=== PATIENT | female | born 1965 | race Hispanic/Latino ===

== ENCOUNTER 2017-06-25 12:20 | Day surgery (SDC) | payer OTHER ==
--- NOTE | 2017-06-25 19:47 | OP ---
DATE OF PROCEDURE: 06/25/2017 PROCEDURE: Esophagogastroduodenoscopy with biopsy SURGEON: Tobi Fowler M.D. ANESTHESIA: Premedication given per Anesthesiology Department PREOPERATIVE DIAGNOSES: 1. Recurrent abdominal pain despite therapy. 2. Gastroesophageal reflux disease. 3. Status post cholecystectomy. POSTOPERATIVE DIAGNOSES: Normal esophagus, normal stomach, and normal duodenum. PROCEDURE DETAILS: Written consent was obtained prior to procedure. After adequate sedation, the fo rward-viewing endoscope was advanced down the stomach under direct vision to the third portion of duo denum. The duodenum including the bulb appeared normal. Pylorus is patent. The gastric antrum, bod y, fundus, and cardia all appeared normal. Biopsies obtained from the antrum for H. pylori. Retrofl exion did not show any abnormality. The GE junction is located at 35 cm from the incisors. The esop hageal lumen and mucosa appeared normal. ASSESSMENT: Normal upper endoscopy. RECOMMENDATIONS: 1. Hyoscyamine 0.125 mg p.o. t.i.d. 2. Follow up in the office in 3-4 weeks.
== END 2017-06-25 15:14 | disposition home or self-care (01) ==
LOC: SDC 12:20
PROVIDERS: ATTEND Internal Medicine Gastroenterology
PROC: 0DJ08ZZ Inspection of Upper Intestinal Tract, Via Natural or Artificial Opening Endoscopic (ICD-10-PCS; principal; 2017-06-25)
DX: K21.9 Gastro-esophageal reflux disease without esophagitis (principal); R10.9 Unspecified abdominal pain; F17.210 Nicotine dependence, cigarettes, uncomplicated; Z79.899 Other long term (current) drug therapy; Z90.49 Acquired absence of other specified parts of digestive tract

== ENCOUNTER 2017-07-05 08:25 | Outpatient (CLI) | payer OTHER | END 2017-07-05 08:26 | disposition home or self-care (01) | LOC: BICMAMMO 08:25 | PROVIDERS: ATTEND Family Medicine | DX: Z12.31 Encounter for screening mammogram for malignant neoplasm of breast (principal); Z80.3 Family history of malignant neoplasm of breast | CPT/HCPCS: 77063; 77067 ==

== ENCOUNTER 2017-08-23 15:46 | Outpatient (CLI) | payer OTHER ==
[~2017-08-23 15:46] MED LIST: Iopamidol 370 76% 100 ML VIAL ONE
--- NOTE | 2017-08-23 16:52 | CT ---
CT ANGIOGRAM THORAX WITH IV CONTRAST AND 3D RECONSTRUCTIONS: 08/23/2017 HISTORY: Elevated D-dimer. Back pain. FINDINGS: No filling defects are seen pulmonary arteries to suggest a pulmonary embolus. The thoracic aorta is normal in caliber without evidence of an aortic dissection. Mediastinal structures have a normal CT appearance. There are scattered linear densities seen within the right middle lobe and right lower lobe, as well as the lingula and the left lower lobe, likely related to areas of atelectasis or possibly but less l ikely areas of scarring. No discrete pulmonary nodule or mass is seen, and there is no evidence of a pleural effusion. Limited visualized upper abdomen demonstrates a grossly normal CT appearance for the arterial phase o f imaging. IMPRESSION: 1. No CT evidence of a pulmonary embolus. 2. Scattered areas of atelectasis. POS: [facility]
== END 2017-08-23 15:47 | disposition home or self-care (01) ==
LOC: CT 15:46
PROVIDERS: ATTEND Family Medicine
DX: R79.89 Other specified abnormal findings of blood chemistry (principal); J98.11 Atelectasis
CPT/HCPCS: 71275

== ENCOUNTER 2017-08-26 10:39 | Outpatient (CLI) | payer OTHER ==
[2017-08-26] MEDS ORDERED: ISOVUE-370 76%-LOCM 1 ML ONE (11:24)
== END 2017-08-26 10:40 | disposition home or self-care (01) ==
LOC: BICCT 10:39
PROVIDERS: ATTEND Family Medicine
DX: R10.84 Generalized abdominal pain (principal); C22.0 Liver cell carcinoma; R59.0 Localized enlarged lymph nodes; N28.89 Other specified disorders of kidney and ureter
CPT/HCPCS: 74177

== ENCOUNTER 2017-08-27 09:55 | Outpatient (CLI) | payer OTHER ==
[~2017-08-27 09:55] MED LIST changes: +Gadobenate Dimeglumine 529 MG/1 ML (20ML VIAL) ONE; -Iopamidol 370 76% 100 ML VIAL ONE
--- NOTE | 2017-08-27 13:35 | MRI ---
MRI ABDOMEN WITH AND WITHOUT IV CONTRAST: Date: 08/27/17 HISTORY: Left liver lobe mass and renal mass. IV CONTRAST: 20 mL MultiHance. CORRELATION: CT abdomen and pelvis dated 08/26/17. FINDINGS: There is a large heterogeneous mass in the left lobe of the liver occupying almost the entire left lo be with additional foci of smaller nodular enhancement adjacent to the larger mass. There is thrombos is of the left portal vein. Associated lymphadenopathy is seen in the peripancreatic, periportal, and retroperitoneum. The pancreas, adrenal glands, spleen, and right kidney are normal. There is an 18.0 mm proteinaceous/ hemorrhagic cyst in the left kidney with high T1 and T2 signal, and no postcontrast enhancement on th e subtraction images. A tiny, 6.0 mm, simple cyst is seen in the left renal cortex with low T1/high T 2 signal and no postcontrast enhancement. No ascites is seen. The bone marrow signal is normal. There are scattered colonic diverticula. IMPRESSION: 1. Infiltrating left liver lobe mass with abdominal lymphadenopathy and left portal vein occlusion s uspicious for malignancy/metastatic disease. 2. Left renal cysts. 3. Colonic diverticulosis. 4. Correlation with serum timi protein levels is recommended. POS: [facility]
== END 2017-08-27 09:56 | disposition home or self-care (01) ==
LOC: SCSMRI 09:55
PROVIDERS: ATTEND Family Medicine
DX: R16.0 Hepatomegaly, not elsewhere classified (principal); I81 Portal vein thrombosis; N28.1 Cyst of kidney, acquired; R59.0 Localized enlarged lymph nodes; K57.30 Diverticulosis of large intestine without perforation or abscess without bleeding
CPT/HCPCS: 36415; 74183; 82105

== ENCOUNTER 2017-09-30 15:26 | Outpatient (CLI) | payer OTHER ==
[2017-09-30 16:18] LABS: #Eosinphils 0.1 thou/uL (0.0-0.7); #Lymphocytes 2.4 thou/uL (1.20-3.40); #Monocytes 0.8 thou/uL (0.11-0.59); #Neutrophils 8.1 thou/uL (1.40-6.50); %Basophils 0.4 % (0.0-1.0); %Eosinophils 0.9 % (0.0-10.0); %Monocytes 7.1 % (0.0-10.0); %Neutrophils 70.7 % (42.0-75.0); Mean Corpuscular HGB CONC 34.5 g/dL (32.0-36.0); Mean Corpuscular Volume 86.9 fL (78.0-98.0); Platelet Count 149 thou/uL (130-400); RBC Distribution Width 12.1 % (11.5-14.5); Red Blood Cell (RBC) Count 4.68 mill/uL (4.20-5.40); White Blood Cell (WBC) Count 11.5 thou/uL (4.8-10.8)
[2017-09-30 16:35] LABS: Anion Gap 15 mmol/L (10-20); BUN (Urea Nitrogen) 12 mg/dL (7.0-18.7); Calc. Creatinine Clearance 0 mL/min (70-130); Calcium 10.9 mg/dL (7.8-10.44); Carbon Dioxide 26 mmol/L (22-29); Chloride 99 mmol/L (98-107); Estimated GFR-MDRD 87; Glucose 138 mg/dL (70-105); Potassium 3.5 mmol/L (3.5-5.1); Sodium 136 mmol/L (136-145)
== END 2017-09-30 15:27 | disposition home or self-care (01) ==
LOC: LABBT 15:26
PROVIDERS: ATTEND Surgery
DX: Z01.812 Encounter for preprocedural laboratory examination (principal); C24.9 Malignant neoplasm of biliary tract, unspecified
CPT/HCPCS: 80048; 85025; 93005; 93010

== ENCOUNTER 2017-10-01 11:25 | Day surgery (SDC) | payer OTHER ==
[2017-09-30 15:51] VITALS: BMI 40.8
[2017-10-01] MEDS ORDERED: CEFAZOLIN/Water 2 GM/20 ML SYRINGE ONE (12:09)
[2017-10-01] MEDS ORDERED: Bupivacaine/Epinephrine 0.25% 30 ML VIAL ONE (12:22)
[2017-10-01] MEDS ORDERED: Lidocaine 2% 10 ML INJ ONE (12:22)
[2017-10-01] MEDS ORDERED: Propofol 500 MG/50 ML VIAL ONE (12:30)
[2017-10-01] MEDS ORDERED: Fentanyl 100 MCG/2 ML VIAL ONE (12:30)
--- NOTE | 2017-10-01 14:01 | RAD ---
CHEST 1 VIEW: HISTORY: MediPort placement. COMPARISON: None. FINDINGS: A central venous catheter port is in place with tip at the inferior SVC in good position. No pneumot horax. There are extensive airspace opacities throughout both lungs. IMPRESSION: 1. Uncomplicated placement of MediPort catheter. 2. Linear opacities in both lungs may be reflective of chronic scarring or atelectasis. POS: [facility]
[2017-10-01] MEDS ORDERED: PROPOFOL 200 MG/20 ML VIAL ONE (15:23)
[2017-10-01] MEDS ORDERED: Lidocaine 1% PF 5 ML VIAL ONE (15:23)
--- NOTE | 2017-10-01 19:32 | PDOC.OP ---
Operative Note - Operative Note Operative Note: PROCEDURE: Left subclavian MediPort placement with fluoroscopic guidance SURGEON: Obed Monique M.D. DATE OF PROCEDURE: 10/01/2017 PREOPERATIVE DIAGNOSIS: Cholangiocarcinoma POSTOPERATIVE DIAGNOSIS: Cholangiocarcinoma HISTORY: Patient is diagnosed with node positive intrahepatic cholangiocarcinoma. Chemotherapy has been recommended and the oncologist has requested MediPort placement for this. OPERATIVE PROCEDURE IN DETAIL: After informed consent was obtained and appropriate preoperative antibiotics were administered, the patient was taken to the operating room and placed in supine position and monitored anesthesia care was administered. The patient was then placed in Trendelenburg position and the subclavian vein accessed easily on the first attempt with excellent flow of dark venous non-pulsatile blood. A wire threaded easily and was confirmed to be in the superior vena cava by fluoroscopy. Additional local anesthesia was infused to the skin and subcutaneous tissues lateral and inferior to the access site. The skin incision was extended from the wire laterally and a subcutaneous pocket developed inferiorly. A Mediport was obtained and confirmed to fit in the subcutaneous pocket. This was secured inferiorly to the pectoralis fascia with a Prolene suture, which was clamped, but not tied. The dilator and sheath were then placed over the wire and the dilator and wire removed leaving the sheath in place. The clamped MediPort tubing was tunneled through the sheath, which was then split and removed leaving the MediPort tubing in place. The tubing was adjusted until the tip was confirmed by fluoroscopy to be in the superior vena cava just above the atrium. The tubing was clamped at the skin level and cut and the tubing secured to the port, which was then placed in the subcutaneous pocket. The previously placed suture was secured and two additional sutures were placed to fix the port in place within the pocket. The port was aspirated with the Ramires needle and had excellent flow of dark venous non-pulsatile blood and easily flushed without resistance. The subcutaneous tissues were closed with a running Monocryl suture, following which the skin was closed with a running subcuticular Monocryl suture. Dermabond dressings were placed and the hub was again accessed through the skin and confirmed to easily aspirate and easily flush. The course of the catheter was confirmed by fluoroscopy to be smooth with the tip appropriately located in the superior vena cava. The patient was taken her back to the day stay unit in good condition. Estimated blood loss was minimal. There were no complications. There were no specimens.
== END 2017-10-01 15:10 | disposition home or self-care (01) ==
LOC: SDC 11:25
PROVIDERS: ATTEND Surgery
PROC: 02HV33Z Insertion of Infusion Device into Superior Vena Cava, Percutaneous Approach (ICD-10-PCS; principal; 2017-10-01)
DX: C22.1 Intrahepatic bile duct carcinoma (principal); E11.9 Type 2 diabetes mellitus without complications; I10 Essential (primary) hypertension; E78.5 Hyperlipidemia, unspecified; Z79.899 Other long term (current) drug therapy; Z87.891 Personal history of nicotine dependence
CPT/HCPCS: 71045; 80048; 85025; 93005; 93010; C1788; J1642; J2001; J2704; J3010

== ENCOUNTER 2017-12-20 08:29 | Outpatient (CLI) | payer OTHER ==
--- NOTE | 2017-12-20 10:41 | CT ---
CT ABDOMEN AND PELVIS WITH IV CONTRAST: Technique: Multiple axial tomograms were obtained of the abdomen and pelvis with IV enhancement. Oral contrast was administered. Indication: [place] carcinoma. Post chemotherapy. Surgical history includes cholecystectomy, hyster ectomy. Comparison: CT abdomen/pelvis from [facility], 08-26-17. FINDINGS: The lung bases appear clear with possible atelectasis in the lower lobes and right middle lobe. The multilobulated diffuse area of low attenuation involving the left lobe of the liver is again note d. No significant change in size or extent of this liver abnormality when compared to 08-26-17. Spleen and pancreas remain unremarkable. The hepatic gastric adenopathy as well as adenopathy in the region adjacent to the neck of the pancre as is again noted, unchanged. Probable small lymph node in the portahepatis is unchanged. The enlarg ed portocaval lymph node is unchanged, continuing to measures approximately 1.2 cm AP dimension. Adrenal glands unremarkable. The 1.6 cm low attenuation lesion involving the left kidney is again noted. This lesion has a density of 55 Hounsfield units which is higher than anticipated for a simple cyst. This represents a complex lesion, but is stable in size from the prior study. Small bowel loops unremarkable. Aorta normal caliber. There is apparent aortic adenopathy which appears stable. There is an enlarged lymph node just to the left of the lower abdominal aorta measuring 1.5 cm, stable. There are other paraaortic lymph nodes m easuring up to 1 cm which appears stable. Aortocaval lymph nodes are enlarged and stable measuring up to 1 cm. Review of the colon again shows diverticulosis in the left colon and sigmoid. There continues to be i nflammatory change involving the sigmoid colon suggesting changes of diverticulitis. No extraluminal mass or abscess identified. No extraluminal gas. IMPRESSION: 1. Multilobular mass involving left lobe of the liver is unchanged in size and appearance from 8. 2. The upper abdominal adenopathy and paraortic adenopathy again noted, stable from the prior exam. 3. Evidence of diverticulitis involving the sigmoid colon again noted as described. 4. Complex low density mass involving the left kidney is again noted, unchanged. POS: [facility]
[2017-12-20] MEDS ORDERED: Iopamidol 370 76% 100 ML VIAL ONE (15:12)
== END 2017-12-20 08:30 | disposition home or self-care (01) ==
LOC: CT 08:29
PROVIDERS: ATTEND Internal Medicine Hematology & Oncology
DX: C22.1 Intrahepatic bile duct carcinoma (principal); R16.0 Hepatomegaly, not elsewhere classified; R59.0 Localized enlarged lymph nodes; K57.32 Diverticulitis of large intestine without perforation or abscess without bleeding; N28.89 Other specified disorders of kidney and ureter
CPT/HCPCS: 74177

== ENCOUNTER 2018-04-11 08:19 | Outpatient (CLI) | payer OTHER ==
--- NOTE | 2018-04-11 11:21 | CT ---
CT OF THE ABDOMEN AND PELVIS WITH IV COTNRAST: INDICATION: History of cholangiocarcinoma. COMPARISON: Prior CT of the abdomen and pelvis dated 12/20/2017. CONTRAST: 70 cc of Isovue 370. FINDINGS: There is an enlarging 11 mm pulmonary nodule left lower lobe suspicious for pulmonary metastatic dise ase. The infiltrating mass lesion involving the left hepatic lobe demonstrates worsening scarring and retr action of the anterior left hepatic capsular border. There are new numerous hypodensities seen scatt ered throughout the hepatic lobe suspicious for metastatic disease. The periportal and portocaval lymphadenopathy persist and appear slightly larger with the index lesio n measuring 1.4 cm where previously this portocaval lymph node measured 1.2 cm. Pancreas and adrenal glands are unremarkable. The spleen remains enlarged measuring 15 cm. Left renal cysts are stable. There has been interval development of wall thickening and pericolonic inflammatory stranding involvi ng the sigmoid colon suspicious for diverticulitis. There is scattered degenerative and osteoarthritic change. IMPRESSION: 1. Worsening cholangiocarcinoma of the left hepatic lobe with worsening scarring and retraction of t he anterior left hepatic lobe border. There are numerous hypodensities now present within the right hepatic lobe likely related to regional spread of disease to the right aspect of the liver. 2. Pulmonary metastatic disease. 3. Persistent adenopathy of the upper abdomen likely related to regional lymph node spread of diseas e. 4. Noncomplicated sigmoid colonic diverticulitis. 5. Stable left renal cyst. 6. Stable splenomegaly. CODE T POS: [facility]
[2018-04-11] MEDS ORDERED: ISOVUE-370 76%-LOCM 1 ML ONE (12:46)
== END 2018-04-11 08:20 | disposition home or self-care (01) ==
LOC: BICCT 08:19
PROVIDERS: ATTEND Internal Medicine Hematology & Oncology
DX: C22.1 Intrahepatic bile duct carcinoma (principal); R59.0 Localized enlarged lymph nodes; N28.1 Cyst of kidney, acquired; R16.1 Splenomegaly, not elsewhere classified; K57.32 Diverticulitis of large intestine without perforation or abscess without bleeding; C78.00 Secondary malignant neoplasm of unspecified lung
CPT/HCPCS: 74177

== ENCOUNTER 2018-05-17 15:22 | Inpatient (IN) | payer OTHER ==
[~2018-05-17 15:22] MED LIST changes: -Gadobenate Dimeglumine 529 MG/1 ML (20ML VIAL) ONE; +ISOVUE-370 76%-LOCM 1 ML ONE
[2018-05-17 16:26] LABS: #Basophils 0.1 thou/uL (0.0-0.2); #Eosinphils 0.1 thou/uL (0.0-0.7); #Lymphocytes 1.5 thou/uL (1.20-3.40); #Neutrophils 11.9 thou/uL (1.40-6.50); %Basophils 0.5 % (0.0-1.0); %Eosinophils 0.6 % (0.0-10.0); %Lymphocytes 10.4 % (21.0-51.0); %Monocytes 7.1 % (0.0-10.0); %Neutrophils 81.5 % (42.0-75.0); Hemoglobin 13.2 g/dL (12.0-16.0); Mean Corpuscular HGB CONC 32.4 g/dL (32.0-36.0); Mean Corpuscular Hemoglobin 31.1 pg (27.0-31.0); Mean Corpuscular Volume 96.1 fL (78.0-98.0); Platelet Count 119 thou/uL (130-400); RBC Distribution Width 16.3 % (11.5-14.5); Red Blood Cell (RBC) Count 4.23 mill/uL (4.20-5.40); White Blood Cell (WBC) Count 14.6 thou/uL (4.8-10.8)
[2018-05-17] MEDS ORDERED: Ondansetron PF 4 MG/2 ML Vial ONE ×2 (16:26→16:29)
[2018-05-17] MEDS ORDERED: Morphine 4 MG/ML VIAL ONE (16:26)
[2018-05-17 16:45] LABS: ALT (SGPT) 17 U/L (8-55); AST (SGOT) 57 U/L (5-34); Albumin 3.3 g/dL (3.5-5.0); Alkaline Phosphatase 235 U/L (40-150); Anion Gap 11 mmol/L (10-20); BUN (Urea Nitrogen) 8 mg/dL (7.0-18.7); Bilirubin, Total 1.5 mg/dL (0.2-1.2); Calc. Creatinine Clearance 0 mL/min (70-130); Calcium 11.4 mg/dL (7.8-10.44); Carbon Dioxide 24 mmol/L (22-29); Chloride 102 mmol/L (98-107); Estimated GFR-MDRD 82; Globulin 4.5 g/dL (2.4-3.5); Glucose 113 mg/dL (70-105); Lipase 37 U/L (8-78); Potassium 3.6 mmol/L (3.5-5.1); Protein, Total 7.8 g/dL (6.0-8.3); Sodium 133 mmol/L (136-145)
--- NOTE | 2018-05-17 18:03 | CT ---
ABDOMEN CT WITH CONTRAST PELVIC CT WITH CONTRAST 05/17/18 COMPARISON: 04/11/18 HISTORY: Cholangiocarcinoma. Metastatic disease. Currently not undergoing any chemotherapy. FINDINGS: ABDOMEN CT: There are linear opacities involving both lower lobes as well as the middle lobe and lingula. Areas o f subsegmental atelectasis and scarring are favored. Heart size is normal. No pericardial effusion. T he visualized aorta is unremarkable. There is a nodule in the left lower lobe measuring 1.2 x 0.9 cm, Unchanged from the previous examinat ion. Metastatic focus is favored. Interval progression of heterogeneous enhancement throughout the hepatic parenchyma. Heterogeneity of the left hepatic lobe is stable. However, there appear to be an increase in the number of heterogene ous/hypodense foci in the right hepatic lobe suggesting progression of disease. The central portal ve in does appear to be patent. The peripheral branches cannot be adequately assessed. The spleen is enl arged, measuring 15.7 cm. Splenic varices are noted. There are enlarged periportal lymph nodes, uncha nged. Currently, this periportal lymph node measures 1.3 cm in short axis (1.3 cm in short axis previ ously). There is interval development of perihepatic or perisplenic free fluid with fluid tracking al jerry both pericolic gutters. Adrenal glands and pancreas are unremarkable. Symmetric enhancement of the kidneys. Bilaterally, no o bstructive uropathy. There is free fluid in the abdomen which has developed since the previous examination. No mesenteric mass, lymphadenopathy or free air. Stable ventral abdominal wall hernia containing a small focus of f at. There is a peripherally enhancing centrally hypodense focus likely involving a thrombosed abdominal v ein, possibly the right ovarian vein. Findings are unchanged. No retroperitoneal mass, lymphadenopath y, or hematoma. Symmetric attenuation of the psoas muscles. Limited evaluation of the alimentary canal by lack of oral contrast. There is a segments of small bow el which are fluid filled and prominent. The possibility of an early or partial obstructive process i n the left hemiabdomen cannot be excluded. Distal small bowel loops are decompressed. Appendix is nor mal in caliber. There is scattered fecal material in a nondistended, nondilated colon. Occasional div erticulum. No diverticulitis. Mucosal prominence of the sigmoid colon is felt to be due to inadequate distention versus sequela of remote episodes of diverticulitis. CT PELVIS: There is free fluid in the pelvis. Urinary bladder is unremarkable. No pelvic mass, lymphadenopathy o r free air. IMPRESSION: 1. Progression of disease in the liver. 2. Stable portal hepatis lymphadenopathy. 3. Metastatic nodule in the left lower lobe. 4. Splenomegaly with splenic varices. 5. Early or partial small bowel obstruction in the proximal jejunal loops. 6. Mucosal prominence of the sigmoid colon likely due to inadequate distention. POS: [facility]
[2018-05-17 18:37] LABS: Bilirubin Negative (Negative); Blood, Urine Negative (Negative); Clarity CLEAR (Clear); Glucose, Urine (Dipstick) Negative (Negative); Leukocyte Negative (Negative); Nitrite Negative (Negative); Protein, Urine (Dipstick) Negative (Neg-Trace); Specific Gravity, Urine 1.033 (1.002-1.036); Urobilinogen 0.2 mg/dL (0.2-1.0); pH, Urine 7.5 (5.0-9.0)
[2018-05-17] MEDS ORDERED: Morphine 4 MG/ML VIAL SLOW IVP PRN ×2 (20:07→22:57)
[2018-05-17] MEDS ORDERED: Ondansetron PF 4 MG/2 ML Vial IVP PRN (20:07)
[2018-05-17] MEDS ORDERED: Ondansetron ODT 4 MG TAB SL PRN (20:07)
[2018-05-17 20:09] LABS: Lactic Acid 1.5 mmol/L (0.5-2.2)
[2018-05-17] MEDS: D5 1/2 NS w/20 mEq KCL 1,000 ML IV SCH (20:36)
[2018-05-17 20:57] VITALS: BMI 41.8
[2018-05-17] MEDS ORDERED: HYDROcodone/Acetaminophen 10/325 mg Tablet PO PRN (22:57)
[2018-05-17] MEDS ORDERED: Acetaminophen 325 MG TAB PO PRN (23:03)
[2018-05-18] MEDS: D5 1/2 NS w/20 mEq KCL 1,000 ML IV SCH ×2 (04:40→13:22)
[2018-05-18 05:09] LABS: #Basophils 0.1 thou/uL (0.0-0.2); #Eosinphils 0.1 thou/uL (0.0-0.7); #Lymphocytes 1.6 thou/uL (1.20-3.40); #Neutrophils 8.7 thou/uL (1.40-6.50); %Basophils 0.5 % (0.0-1.0); %Eosinophils 1.3 % (0.0-10.0); %Lymphocytes 13.9 % (21.0-51.0); %Monocytes 8.3 % (0.0-10.0); %Neutrophils 76.1 % (42.0-75.0); Hemoglobin 11.1 g/dL (12.0-16.0); Mean Corpuscular HGB CONC 32.1 g/dL (32.0-36.0); Mean Corpuscular Hemoglobin 31.6 pg (27.0-31.0); Mean Corpuscular Volume 98.5 fL (78.0-98.0); Mean Platelet Volume 11.5 fL (7.4-10.4); Platelet Count 99 thou/uL (130-400); RBC Distribution Width 16.1 % (11.5-14.5); Red Blood Cell (RBC) Count 3.51 mill/uL (4.20-5.40); White Blood Cell (WBC) Count 11.4 thou/uL (4.8-10.8)
--- NOTE | 2018-05-18 05:15 | HP ---
PRIMARY CARE DOCTOR: Dr. Ivon Marcelino. CODE STATUS: Full code. TIME OF EVALUATION: 11:10 p.m. CHIEF COMPLAINT: Abdominal pain. 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 The pain has been gradually worsening, is being very severe. Symptoms are generalized. She reported the pain is like cramps. REVIEW OF SYSTEMS: CONSTITUTIONAL: No fever, chills, or generalized weakness. RESPIRATORY: No cough, sputum production, or shortness of breath. CARDIOVASCULAR: No chest pain or palpitation. GASTROINTESTINAL: The patient had diffuse abdominal pain, diarrhea. No nausea or vomiting. CNP: No dizziness, headache, or feeling lightheaded. GENITOURINARY: No burning on urination. EXTREMITIES: No leg swelling. All other systems were reviewed and negative except for the findings mentioned above. PAST MEDICAL HISTORY: As mentioned in HPI. PAST SURGICAL HISTORY: Hysterectomy, gallbladder surgery, tubal ligation. PSYCH HISTORY: No previous psych history. SOCIAL HISTORY: No alcohol. No drugs. The patient smokes occasionally. FAMILY HISTORY: Reviewed and noncontributory for current presentation. ALLERGIES: NO KNOWN DRUG ALLERGIES. PHYSICAL EXAMINATION: VITAL SIGNS: On presentation, blood pressure 135/95 with heart rate 111, respiratory rate was 22, temperature 98.3, pain was 10/10, oxygen saturation was 96% on room air. GENERAL APPEARANCE: The patient is alert, oriented, in no acute distress. HEENT: Eyes, normal conjunctivae. Moist oral mucosa. Anicteric. No JVD. RESPIRATORY: Bilateral air entry. No rales. No wheezes. Symmetric expansion. CARDIOVASCULAR: Normal rate, regular rhythm. No murmurs. No gallops. No edema. ABDOMEN: Soft, diffusely tender. Normal bowel sounds. MUSCULOSKELETAL: Baseline range of motion and strength. No tenderness. SKIN: Warm and intact. No pallor. No rash. No redness. Peripheral pulses are present. Capillary refill seems to be intact. NEUROLOGIC: No evidence of any new focal weakness. Baseline speech. Cranial nerves seems to be intact. PSYCH: The patient is in good mood. No anxiety. Optimal judgment. LABORATORY DATA: Abdominal ultrasound was reviewed. The patient had prominent common bile duct, diameter is near the upper limit of normal. As a conservative measure, MRCP or ERCP can be performed. Labs were reviewed, the patient has white count 3.8, hemoglobin 11.5, platelet count 230. Chemistries; sodium 132, potassium 3.8, carbon dioxide 21, BUN 18, anion gap 15. Lactic acid 2.8, second one is 2.6. LFTs were elevated. Lipase 135. Urine was done and was positive with white count 21 to 50. ASSESSMENT AND PLAN: The patient has been placed in the hospital with the following medical problems: 1. Acute pancreatitis. The patient has elevated lipase and also LFTs, unclear if she is having obstruction of the biliary common bile duct, we will consult GI, we will follow recommendations. We will treat with pain management and also with hydration. 2. Urinary tract infection. The patient has positive urine. The patient will receive antibiotics for that reason. Follow cultures, we will adjust treatment as needed. 3. Possible sepsis. The patient is leukopenic with lactic acidosis. The patient has pancreatitis and also urinary tract infection. We will hydrate. We will give antibiotics. 4. Hyponatremia, sodium 132. This is mild. We will give hydration, we will monitor sodium level. 5. Deep venous thrombosis prophylaxis. 6. History of common bile duct cancer, on treatment by Oncology. The patient has metastatic cancer to the lung. Oncology could be consulted if needed for that reason. 7. Deep venous thrombosis prophylaxis. Job ID: [id number]
[2018-05-18 05:19] LABS: Anion Gap 10 mmol/L (10-20); BUN (Urea Nitrogen) 8 mg/dL (7.0-18.7); Calc. Creatinine Clearance 148 mL/min (70-130); Calcium 10.9 mg/dL (7.8-10.44); Carbon Dioxide 26 mmol/L (22-29); Chloride 104 mmol/L (98-107); Estimated GFR-MDRD 86; Glucose 95 mg/dL (70-105); Sodium 136 mmol/L (136-145)
[2018-05-18] MEDS ORDERED: Enoxaparin Sodium 40 MG/0.4 ML SYRINGE SC SCH (09:00)
[2018-05-18] MEDS ORDERED: Lisinopril/Hydrochlorothiazide 10 mg/12.5 mg Tablet PO SCH (09:00)
[2018-05-18] MEDS ORDERED: Amlodipine 5 MG TAB PO SCH (09:00)
[2018-05-18] MEDS ORDERED: MD-Gastroview 120 ML BOT ONE (10:27)
--- NOTE | 2018-05-18 10:42 | CON ---
DATE OF CONSULTATION: REASON FOR CONSULT: Cholangiocarcinoma. HISTORY OF PRESENT ILLNESS: Ms. Thomas is a pleasant 52-year-old female, who was diagnosed with unresectable intrahepatic cholangiocarcinoma in late September of 2017. She underwent chemotherapy with Platinol and Gemzar until she had an allergic reaction to the Platinol in March 2018. Scan at that time show progression of disease. Her tissue was sent for mutational testing to determine treatment. Those results are currently pending. Over the last several days, she began to have abdominal pain in the right upper quadrant, it is associated with nausea. She presented to the emergency room for further evaluation. Abdominal and pelvis CT scan showed progression of disease in the liver. There were segments of the small bowel, which were prominent concerning for early or partial small bowel obstruction. She was also noted to have elevated calcium. In the emergency room, she was admitted for further treatment. She has been kept n.p.o. and started on IV fluids. Surgical consult is currently pending. PAST MEDICAL HISTORY: 1. Metastatic cholangiocarcinoma. 2. Hypertension. 3. Hyperlipidemia. 4. History of rheumatic fever. 5. Diverticulosis. 6. Fatty liver. 7. Obesity. 8. Gallstones. PAST SURGICAL HISTORY: 1. CT-guided biopsy of liver. 2. Upper endoscopy. 3. Colonoscopy. 4. Bladder suspension. 5. Cholecystectomy. 6. Vesicovaginal fistula repair. ALLERGIES: NO KNOWN DRUG ALLERGIES. HOME MEDICATIONS: 1. Amlodipine 10 mg daily. 2. Lisinopril/hydrochlorothiazide daily. 3. Oxycodone 10 daily. 4. Zofran p.r.n. FAMILY HISTORY: There is a family history of pancreatic cancer. SOCIAL HISTORY: She is , has one child. Lives with her spouse. Former smoker. No alcohol or illicit drug use. REVIEW OF SYSTEMS: CONSTITUTIONAL: No fever, chills, or night sweats. EYES: No blurred or double vision. ENT: No pain, hoarseness, sore throat, or dysphagia. CARDIOVASCULAR: No chest pain, palpitations, or syncope. RESPIRATORY: No shortness of breath, dyspnea on exertion, or orthopnea. GASTROINTESTINAL: Positive for nausea, abdominal pain, or constipation. GENITOURINARY: No dysuria or hematuria. MUSCULOSKELETAL: No joint or back pain. SKIN: No rash or pruritus. HEMATOLOGICAL: No bleeding, bruising, or clotting. NEUROLOGICAL: No weakness, headache, numbness, tingling, or seizure activity. PSYCH: Positive for anxiety and depression. PHYSICAL EXAMINATION: VITAL SIGNS: Temperature is 97.7, pulse is 77, respiratory rate is 18, blood pressure is 123/59, and she is 93% on room air. GENERAL: This is a well-developed, well-nourished female, in no acute distress. HEENT: Normocephalic, atraumatic. Pupils are equal and reactive to light. NECK: Supple. CARDIOVASCULAR: Regular rate and rhythm. LUNGS: Clear. ABDOMEN: Mildly tender to palpation. Hypoactive bowel sounds. EXTREMITIES: No clubbing, cyanosis, or edema. SKIN: No rash. HEMATOLOGICAL: No petechiae or purpura. NEUROLOGICAL: Nonfocal. PSYCH: The patient is alert, oriented, and appropriate. PERTINENT LABS AND X-RAYS: Current WBCs 11.4, hemoglobin 11.1, hematocrit 34.6 , and platelet count is 99,000. She has 76% neutrophils, 14% lymphocytes. Sodium is 136, potassium 4.0, chloride 104, CO2 is 26, BUN is 8, creatinine 0.72, lactic acid is 1.5, calcium 10.9, bilirubin is 1.5, AST is 57, ALT is 17, alkaline phosphatase is 235, serum total protein is 7.8, albumin 3.3, globulin 4.5, and lipase is 37. Urine is negative for bacteria. Blood cultures were negative. Radiology per HPI. ASSESSMENT: 1. Metastatic cholangiocarcinoma. 2. Hypercalcemia, likely malignant. 3. Elevated transaminases. 4. Possible early partial small bowel obstruction. DISCUSSION: The patient has been given IV fluids with improvement in her hypercalcemia. We will continue fluids while she is n.p.o. and recheck her labs in the a.m. Surgical consult has been placed. Otherwise, continue pain medication and we will provide supportive care. Thank you for the consult. Job ID: [id number] [facility]
[2018-05-18] MEDS ORDERED: Labetalol HCl 100 MG/20 ML VIAL SLOW IVP PRN (12:34)
[2018-05-18] MEDS ORDERED: hydrALAZINE 20 MG/ML VIAL SLOW IVP PRN (12:34)
[2018-05-18] MEDS ORDERED: Acetaminophen 1,000 MG in Premix Bag 1 BAG IVPB PRN (17:24)
--- NOTE | 2018-05-18 19:06 | RAD ---
GASTROGRAFIN SMALL BOWEL 05/18/18 HISTORY: Evaluate for small bowel obstruction. COMPARISON: None. FINDINGS: Initial education director radiograph of the abdomen demonstrates a nasogastric tube in the left upper quadrant. T here does appear to be a slightly prominent air filled loop of small bowel in the left hemiabdomen. Gastrografin was administered and opacifies multiple normal caliber small bowel loops. There is defin ite contrast opacifying the colon on the three hour image, down to the level of the rectum. IMPRESSION: No evidence of high grade small bowel obstruction. POS: [facility]
--- NOTE | 2018-05-18 20:14 | CON ---
DATE OF CONSULTATION: HISTORY OF PRESENT ILLNESS: The patient is currently on the Oncology floor. She is a 52-year-old female, who has a history of cholangiocarcinoma, who presented to the emergency department yesterday with intermittent diffuse abdominal pain, who underwent evaluation and examination in the emergency department to include a CT with IV contrast, no p.o. contrast, abdominopelvic CT that showed an early partial small-bowel obstruction, at which time we were asked to evaluate the patient for surgical consultation. The patient is undergoing treatment for her cholangiocarcinoma and her last treatment was in March of 2018. The patient denies fevers, chills, or any recent unexplained weight losses. She has not had any further illnesses or ill contacts. Denies nausea or vomiting. The patient does admit to having 1 to 2 episodes of diarrhea. ALLERGIES: NONE. CURRENT MEDICATIONS: Amlodipine, lisinopril, oxycodone, and Zofran. PAST MEDICAL HISTORY: Metastatic cholangiocarcinoma, hypertension, hyperlipidemia, diverticulosis, fatty liver disease, cholelithiasis. PAST SURGICAL HISTORY: Cholecystectomy, vesicovaginal fistula repair, bladder suspension, colonoscopy, and CT-guided biopsy of liver. SOCIAL HISTORY: The patient is and lives independently with her spouse. She denies drug or alcohol use, and has smoked the cigarettes in the past, but has quit greater than 5 years ago. PHYSICAL EXAMINATION: VITAL SIGNS: Temperature is 98.0, heart rate 78, blood pressure 111/55, respirations 18, oxygen saturation is 93% on room air. GENERAL: The patient is resting comfortably in bed. She is awake, alert, oriented, conversant, and appropriate. HEENT: Unremarkable. LUNGS: Clear to auscultation with good inspiratory and expiratory effort. HEART: Regular rate and rhythm. ABDOMEN: Soft, flat, nontender with active bowel sounds. EXTREMITIES: Neurovascularly intact x4. BACK: Nontender. Negative CVA tenderness. LABORATORY FINDINGS: White blood cell count 11.4, hemoglobin 11.1, hematocrit 34.6, platelets 99. Sodium 136, potassium 4.0, chloride 104, CO2 of 26, BUN 8, creatinine 0.72, glucose 86, calcium 10.9. Urinalysis is unremarkable. RADIOGRAPHIC REPORTS: CT of the abdomen and pelvis with IV contrast shows, 1. Progression of the diseased liver. 2. Stable cortez hepatis lymphadenopathy. 3. Metastatic nodule in the left lower lobe. 4. Splenomegaly with splenic varices. 5. Early or partial small-bowel obstruction in the proximal jejunal loops. 6. Mucosal prominence of the sigmoid colon, likely due to inadequate distention. Small-bowel follow-through shows no evidence of high-grade small-bowel obstruction. ASSESSMENT AND PLAN: 1. Abdominal pain, resolving. 2. No evidence of high-grade small-bowel obstruction. Plan will be to advance the patient's diet and re-examine her in the morning. Currently, there does not appear to be any surgical indications at this time. The patient was evaluated with Dr. Erwin and he has reviewed all of the radiographs with the family and answered their questions. Job ID: [id number]
--- NOTE | 2018-05-18 22:01 | PRG ---
DATE OF SERVICE: 05/18/2018 SUBJECTIVE: The patient continues to have abdominal discomfort. Last bowel movement was yesterday. She is not passing gas. No nausea or vomiting reported. No fever or chills. OBJECTIVE: VITAL SIGNS: Temperature 98, pulse rate of 78, blood pressure 111/55 with O2 saturation 93% on room air, respiration of 18. Intake of 1441, output unavailable. REVIEW OF SYSTEMS: The patient denies any chest pain, palpitations, cough, shortness of breath, or wheezing. PHYSICAL EXAMINATION: GENERAL: A 52-year-old female in mild distress due to abdominal discomfort. LUNGS: Showed diminished air entry at bilateral bases. HEART: S1 and S2 present. Regular rate and rhythm. ABDOMEN: Soft, diffuse tenderness mainly in the right upper quadrant. No guarding. No rigidity. Bowel sounds present. EXTREMITIES: No edema or calf tenderness. NEUROLOGIC: Grossly nonfocal. LABORATORY FINDINGS: WBC down to 11.4, hemoglobin 11.1, hematocrit 34.6, platelet of 99. Chemistry showed sodium 136, potassium 4 with BUN 0.72. Calcium down to 10.9 from 11.4. Urinalysis was negative. Blood cultures negative. CT scan of the abdomen and pelvis on admission showed partial small-bowel obstruction. IMPRESSION: 1. Abdominal discomfort due to small bowel obstruction. 2. Dehydration with hypercalcemia. 3. Metastatic cholangiocarcinoma. 4. Abnormal LFTs. 5. Morbid obesity with a BMI of 41.8. 6. Splenomegaly with splenic varices. 7. Hypertension. 8. Hyperlipidemia. 9. Diverticulosis. 10. Hyponatremia, improved. 11. Thrombocytopenia. PLAN: The patient will be monitored on the medical floor. IV fluids will be continued. The patient will be made n.p.o. We will encourage ambulation. Hold Lovenox due to thrombocytopenia. Consult General Surgery. Hold NG tube for now due to lack of nausea. Repeat labs in a.m. Job ID: [id number]
[2018-05-19 04:39] LABS: #Basophils 0.1 thou/uL (0.0-0.2); #Eosinphils 0.1 thou/uL (0.0-0.7); #Lymphocytes 1.5 thou/uL (1.20-3.40); #Monocytes 0.9 thou/uL (0.11-0.59); #Neutrophils 9.9 thou/uL (1.40-6.50); %Basophils 0.4 % (0.0-1.0); %Neutrophils 79.6 % (42.0-75.0); Mean Corpuscular HGB CONC 31.9 g/dL (32.0-36.0); Mean Corpuscular Hemoglobin 31.6 pg (27.0-31.0); Mean Platelet Volume 10.8 fL (7.4-10.4); Platelet Count 118 thou/uL (130-400); RBC Distribution Width 16.2 % (11.5-14.5); White Blood Cell (WBC) Count 12.4 thou/uL (4.8-10.8)
[2018-05-19 05:02] LABS: Phosphorus 2.7 mg/dL (2.3-4.7)
[2018-05-19 05:05] LABS: ALT (SGPT) 16 U/L (8-55); AST (SGOT) 51 U/L (5-34); Albumin 2.9 g/dL (3.5-5.0); Alkaline Phosphatase 196 U/L (40-150); Anion Gap 12 mmol/L (10-20); BUN (Urea Nitrogen) 7 mg/dL (7.0-18.7); Bilirubin, Total 1.4 mg/dL (0.2-1.2); Calc. Creatinine Clearance 157 mL/min (70-130); Calcium 11.1 mg/dL (7.8-10.44); Carbon Dioxide 24 mmol/L (22-29); Chloride 104 mmol/L (98-107); Estimated GFR-MDRD Greater than 90; Globulin 3.9 g/dL (2.4-3.5); Glucose 105 mg/dL (70-105); Magnesium 1.6 mg/dL (1.6-2.6); Potassium 3.7 mmol/L (3.5-5.1); Protein, Total 6.8 g/dL (6.0-8.3); Sodium 136 mmol/L (136-145)
[2018-05-19] MEDS ORDERED: Dextrose 5 %-0.45 % NaCl 1,000 ML IV SCH ×2 (05:45→11:27)
[2018-05-19] MEDS: D5 1/2 NS w/20 mEq KCL 1,000 ML IV SCH ×2 (06:16→07:45)
[2018-05-19] MEDS ORDERED: traMADol HCl 50 MG TAB PO PRN (10:36)
[2018-05-19] MEDS: Pantoprazole 40 MG VIAL IVP SCH (11:06)
--- NOTE | 2018-05-19 12:17 | RAD ---
KUB: HISTORY: Followup of small bowel obstruction. COMPARISON: Prior day's small bowel follow through. FINDINGS: There is air within both small and large bowel. I do not see any signs for obstruction. No free air is seen on the supine film. A calcification seen overlying the region of the left kidney, but no re nal calculus is identified on the CT of 05/17/2018. Surgical clips are noted in the right upper quadra nt. In reviewing the previous CT study, some of the dilatation of proximal jejunum appears less pron ounced on today's study. IMPRESSION: No signs of obstruction. POS: [facility]
--- NOTE | 2018-05-19 14:43 | PDOC.PN ---
- Subjective Encounter Start Date: 05/19/18 Encounter Start Time: 10:30 Patient seen and examined for SBO. No fever/chills/N/V. No new complaints. No overnight events - Objective Resuscitation Status - Order Detail: 05/17/18 23:03 Resuscitation Status Routine Resuscitation Status: FULL: Full Resuscitation MAR Reviewed: Yes Vital Signs & Weight: Vital Signs (12 hours) Temp Pulse Resp BP Pulse Ox 05/19/18 08:00 97.3 F L 82 16 134/64 94 L Weight Admit Weight 221 lb 1.6 oz Weight 221 lb 1.6 oz I&O: 05/18/18 05/19/18 05/20/18 06:59 06:59 06:59 Intake Total 1441 Balance 1441 Result Diagrams: 05/19/18 04:14 05/19/18 04:14 Phys Exam - Physical Examination Constitutional: NAD Respiratory: no wheezing, no rhonchi Cardiovascular: RRR, no rub Gastrointestinal: soft, non-tender, positive bowel sounds Musculoskeletal: no edema Neurological: moves all 4 limbs Dx/Plan - Plan DVT proph w/SCDs 1. Abdominal discomfort/Small bowel obstruction - improving. 2. Dehydration. 3. Metastatic cholangiocarcinoma. 4. Abnormal LFTs. 5. Morbid obesity with a BMI of 41.8. 6. Splenomegaly with splenic varices. 7. Hypertension. 8. Hyperlipidemia. 9. Diverticulosis. 10. Hyponatremia, improved. 11. Thrombocytopenia. 12. Hypercalcemia - probably due to malignancy PLAN: Cont clear liqd diet per Surg Repeat KUB today per Surg Reduce IVF Surg input appreciated AM labs DC home when cleared by Surgery Review of Systems - Review of Systems Respiratory: negative: Cough, Dry, Shortness of Breath, Hemoptysis, SOB with Excertion, Pleuritic Pain, Sputum, Wheezing Cardiovascular: negative: chest pain, palpitations, orthopnea, paroxysmal nocturnal dyspnea, edema, light headedness, other - Medications/Allergies Allergies/Adverse Reactions: Allergies Allergy/AdvReac Type Severity Reaction Status Date / Time No Known Allergies Allergy Verified 09/30/17 15:51 Medications: Current Medications Acetaminophen (Tylenol) 650 mg PO Q4H PRN PRN Reason: Headache/Fever/Mild Pain (1-3) Last Admin: 05/19/18 01:24 Dose: 650 mg Hydralazine HCl (Apresoline) 10 mg SLOW IVP Q4H PRN PRN Reason: SBP Greater Than 180 Dextrose/Sodium Chloride (D5 1/2 Ns) 1,000 mls @ 50 mls/hr IV .Q20H ON LICENSE OF [facility] Last Admin: 05/19/18 11:47 Dose: Not Given Labetalol HCl (Normodyne) 10 mg SLOW IVP Q4H PRN PRN Reason: Systolic BP > 180 Ondansetron HCl (Zofran) 4 mg IVP Q6H PRN PRN Reason: Nausea/Vomiting Stop: 05/22/18 06:10 Last Admin: 05/18/18 15:30 Dose: 4 mg Ondansetron HCl (Zofran Odt) 4 mg SL Q6H PRN PRN Reason: Nausea/Vomiting Stop: 05/22/18 06:10 Last Admin: 05/19/18 11:13 Dose: 4 mg Pantoprazole Sodium (Protonix) 40 mg IVP DAILY ON LICENSE OF [facility] Last Admin: 05/19/18 11:06 Dose: 40 mg Sodium Chloride (Flush - Normal Saline) 10 ml IVF Q12HR ON LICENSE OF [facility] Sodium Chloride (Flush - Normal Saline) 10 ml IVF PRN PRN PRN Reason: Saline Flush Last Admin: 05/19/18 11:08 Dose: 10 ml Tramadol HCl (Ultram) 50 mg PO Q4H PRN PRN Reason: Moderate Pain (4-6) Last Admin: 05/19/18 11:06 Dose: 50 mg
--- NOTE | 2018-05-19 15:18 | PQF ---
DATE: 05-19-18 ATTN: DR. JOSE JUAN CLINTON Please exercise your independent, professional judgment in responding to the clarification form. Clinical indicators are provided on the bottom of this form for your review Please check appropriate box(s) to clarify if the following diagnosis has been ruled in or ruled out: SEPSIS [ ] Ruled in diagnosis [ ] Continue to treat [ ] Resolved [ x ] Ruled out diagnosis [ ] Other diagnosis [ ] Unable to determine In addition, please specify: Present on Admission (POA): [ ] Yes [ ] No [ ] Unable to determine For continuity of documentation, please document condition throughout progress notes and discharge summary. Thank You. CLINICAL INDICATORS - SIGNS / SYMPTOMS / LABS ER DX: PARTIAL SBO, CHOLECYSTIC CARCINOMA H&P: ACUTE PANCREATITIS, UTI, POSSIBLE SEPSIS, PT IS LEUKOPENIC WITH LACTIC ACIDOSIS. THE PATIENT HAS PANCREATITIS AND ALSO UTI. WE WILL HYDRATE. WE WILL GIVE ANTIBIOTICS RISK FACTORS: H&P: ACUTE PANCREATITIS, UTI, POSSIBLE SEPSIS, PT IS LEUKOPENIC WITH LACTIC ACIDOSIS. ER DX: PARTIAL SBO, CHOLECYSTIC CARCINOMA TREATMENTS: ER: IVF H&P: ACUTE PANCREATITIS, UTI, POSSIBLE SEPSIS, PT IS LEUKOPENIC WITH LACTIC ACIDOSIS. THE PATIENT HAS PANCREATITIS AND ALSO UTI. WE WILL HYDRATE. WE WILL GIVE ANTIBIOTICS (This form is maintained as a part of the permanent medical record) 2014 [employer]. All Rights Reserved [employer]
--- NOTE | 2018-05-19 15:22 | PRG ---
DATE OF SERVICE: 05/19/2018 SUBJECTIVE: The patient remains on the oncology floor. The patient we are seeing in consultation for an early partial small bowel obstruction, who underwent small-bowel follow-through yesterday. She had contrast all the way through her small intestines in her colon. She has had multiple small bowel movements. She states primarily liquid. She is tolerating a diet. She has been able to get out of bed and move without difficulty. Her epigastric pain appears to have improved with the Protonix and she states otherwise she is doing well. OBJECTIVE: VITAL SIGNS: Temperature is 97.3, heart rate 82, blood pressure 134 /64, respirations 16, and oxygen saturation 94% on room air. GENERAL: The patient is resting comfortably, in the bedside chair. She is awake, alert, and oriented x3. HEENT: Unremarkable. LUNGS: Clear to auscultation with good inspiratory and expiratory effort. HEART: Regular rate and rhythm. ABDOMEN: Soft, flat, nontender with active bowel sounds. EXTREMITIES: Neurovascular intact x4. LABORATORY FINDINGS: White blood cell count 12.4, hemoglobin 12.0, hematocrit 37.6, and platelets 118. Sodium 136, potassium 3.7, chloride 104, CO2 of 24, BUN 7, creatinine 0.68, glucose 105. RADIOGRAPHIC FINDINGS: KUB shows no signs of obstruction. ASSESSMENT AND PLAN: 1. History of cholangiocarcinoma. 2. Radiographic signs of early partial small bowel obstruction, improved. Plan will be to recommend discontinuing IV fluids and advance her diet as tolerated. There continues to be no surgical intervention needed at this time and the patient from our standpoint can be discharged home when she is tolerating a regular diet. We would suspect this will be tomorrow. Please call us if there is anything further we can assist to with. The evaluation and examination were done with Dr. Erwin this morning. Job ID: [id number] [facility]
[2018-05-20 04:11] LABS: #Basophils 0.1 thou/uL (0.0-0.2); #Eosinphils 0.1 thou/uL (0.0-0.7); #Lymphocytes 1.6 thou/uL (1.20-3.40); #Monocytes 0.8 thou/uL (0.11-0.59); #Neutrophils 7.3 thou/uL (1.40-6.50); %Basophils 0.5 % (0.0-1.0); %Eosinophils 1.4 % (0.0-10.0); %Monocytes 8.4 % (0.0-10.0); %Neutrophils 73.7 % (42.0-75.0); Hemoglobin 11.2 g/dL (12.0-16.0); Mean Corpuscular HGB CONC 32.2 g/dL (32.0-36.0); Mean Corpuscular Hemoglobin 31.8 pg (27.0-31.0); Mean Corpuscular Volume 98.7 fL (78.0-98.0); Mean Platelet Volume 10.2 fL (7.4-10.4); Platelet Count 114 thou/uL (130-400); RBC Distribution Width 16.2 % (11.5-14.5); White Blood Cell (WBC) Count 9.9 thou/uL (4.8-10.8)
[2018-05-20 04:23] LABS: ALT (SGPT) 12 U/L (8-55); AST (SGOT) 42 U/L (5-34); Albumin 2.7 g/dL (3.5-5.0); Alkaline Phosphatase 183 U/L (40-150); Anion Gap 10 mmol/L (10-20); BUN (Urea Nitrogen) 5 mg/dL (7.0-18.7); Bilirubin, Total 0.9 mg/dL (0.2-1.2); Calc. Creatinine Clearance 154 mL/min (70-130); Calcium 10.6 mg/dL (7.8-10.44); Carbon Dioxide 25 mmol/L (22-29); Chloride 103 mmol/L (98-107); Estimated GFR-MDRD 90; Globulin 3.5 g/dL (2.4-3.5); Glucose 80 mg/dL (70-105); Magnesium 1.6 mg/dL (1.6-2.6); Potassium 3.6 mmol/L (3.5-5.1); Protein, Total 6.2 g/dL (6.0-8.3); Sodium 134 mmol/L (136-145)
[2018-05-20 07:40] VITALS: BP 119/54; TEMP 97.8
[2018-05-20] MEDS: Pantoprazole 40 MG VIAL IVP SCH (10:17)
--- NOTE | 2018-05-20 12:25 | PQF ---
UZMA JACQUES MALIK MD [id number] CLINICAL DOCUMENTATION IMPROVEMENT CLARIFICATION FORM: ICD-10 Updated PLEASE DO AN ADDENDUM TO THE PROGRESS NOTE WITH ANY DOCUMENTATION UPDATES OR ADDITIONS AND CARRY THROUGH TO DC SUMMARY. THANK YOU. DATE: 07/20 ATTN : DR. JOSE JUAN CLINTON Please exercise your independent, professional judgment in responding to the clarification form. Clinical indicators are provided on the bottom of this form for your review. Please check appropriate box(s) to clarify if the following diagnosis has been ruled in or ruled out: ACUTE PANCREATITIS [ ] Ruled in diagnosis [ ] Continue to treat [ ] Resolved [ x ] Ruled out diagnosis [ ] Other diagnosis [ ] Unable to determine In addition, please specify: Present on Admission (POA): [ ] Yes [ ] No [ ] Unable to determine For continuity of documentation, please document condition throughout progress notes and discharge summary. Thank You. CLINICAL INDICATORS - SIGNS / SYMPTOMS / LABS H&P DOCUMENTATION 05/17 ([place]): ASSESSMENT/PLAN: 1) ACUTE PANCREATITIS. THE PT HAS ELEVATED LIPASE & ALSO LFT'S, UNCLEAR IF SHE IS HAVING OBSTRUCTION OF THE BILIARY COMMON BILE DUCT. LIPASE: 37 (05/17) AST: 57, 51, 42 (05/17, & 8) NO FURTHER MENTION OF PANCREATITIS TO DATE RISKS: CHOLANGIOCARCINOMA PARTIAL SBO TREATMENT: IVF (D5 1/2 NS 05/17 - 7) THANK YOU! [employer] (This form is maintained as a part of the permanent medical record) 2014 [employer]. All Rights Reserved P[employer]bles Powell RN, BSN [email or web address] Office: [phone] [facility] [facility]
--- NOTE | 2018-05-20 14:36 | DIS ---
DATE OF ADMISSION: 05/17/2018 DATE OF DISCHARGE: 05/20/2018 DISCHARGE DISPOSITION: Home. DISCHARGE FOLLOWUP: 1. Follow up with primary care physician, Dr. Marcelino in 1 week. 2. Follow up with Dr. Adeel Erwin in 3 to 4 weeks. ALLERGIES: NO KNOWN DRUG ALLERGIES. DISCHARGE MEDICATIONS: Same as admission medications. The patient was seen and examined on the day of discharge. Denies any nausea, vomiting, or abdominal discomfort. BRIEF HOSPITAL COURSE: The patient is a 52-year-old female with metastatic cholangiocarcinoma, presented to the hospital with abdominal discomfort on [address] scan of the abdomen and pelvis done on admission showed early or partial small-bowel obstruction in the proximal jejunal loops. She was evaluated by General Surgery. NG tube was placed. She was kept n.p.o. and was started on IV fluids. She underwent small-bowel follow-through after which a small-bowel obstruction resolved. She underwent a KUB yesterday and that showed no signs of obstruction. The patient has been cleared by General Surgery for discharge. SIGNIFICANT LABORATORY DATA: WBC on admission 14.6, at discharge 9.9. Total bilirubin on admission was 1.5, at discharge 0.9. Calcium at discharge is 10.6. FINAL DIAGNOSES: 1. Abdominal discomfort secondary to small-bowel obstruction, resolved. 2. Dehydration. 3. Metastatic cholangiocarcinoma. 4. Abnormal LFTs probably secondary to #1, improving. 5. Systemic inflammatory response syndrome secondary to dehydration. No infectious etiology identified. 6. Morbid obesity with a BMI of 41.8. 7. Splenomegaly with splenic varices. 8. Hypertension. 9. Hyperlipidemia. 10. Diverticulosis. 11. Hyponatremia. 12. Hypercalcemia probably secondary to malignancy. 13. Thrombocytopenia. PLAN: Plan was discussed with the patient in detail. Plan of care was discussed with the patient in detail. She stated understanding. Job ID: [id number]
== END 2018-05-20 14:57 | disposition home or self-care (01) | DRG 389 ==
LOC: ERS 15:22 → ONC 18:12
PROVIDERS: ADMIT Emergency Medicine; ATTEND Emergency Medicine
DX: K56.609 Unspecified intestinal obstruction, unspecified as to partial versus complete obstruction (principal); E87.1 Hypo-osmolality and hyponatremia; Z68.41 Body mass index [BMI] 40.0-44.9, adult; C22.1 Intrahepatic bile duct carcinoma; C78.02 Secondary malignant neoplasm of left lung; C78.01 Secondary malignant neoplasm of right lung; I10 Essential (primary) hypertension; E78.5 Hyperlipidemia, unspecified; E86.0 Dehydration; E83.52 Hypercalcemia; E66.01 Morbid (severe) obesity due to excess calories; R16.1 Splenomegaly, not elsewhere classified; I86.8 Varicose veins of other specified sites; K57.90 Diverticulosis of intestine, part unspecified, without perforation or abscess without bleeding; D69.6 Thrombocytopenia, unspecified; R79.89 Other specified abnormal findings of blood chemistry; Z90.710 Acquired absence of both cervix and uterus; Z90.49 Acquired absence of other specified parts of digestive tract; Z98.51 Tubal ligation status; Z92.21 Personal history of antineoplastic chemotherapy
CPT/HCPCS: 36415; 74018; 74177; 74250; 80048; 80053; 81003; 83605; 83690; 83735; 84100; 85025; 87040; 96361; 96374; 96375; C9113; J0131; J0360; J1650; J2270; J2405; Q0162; Q9963; Q9966

== ENCOUNTER 2018-06-30 09:20 | Day surgery (SDC) | payer OTHER ==
[2018-06-30 09:35] LABS: #Basophils 0.1 thou/uL (0.0-0.2); #Eosinphils 0.2 thou/uL (0.0-0.7); #Lymphocytes 2.1 thou/uL (1.20-3.40); #Monocytes 1.9 thou/uL (0.11-0.59); #Neutrophils 10.5 thou/uL (1.40-6.50); %Basophils 0.7 % (0.0-1.0); %Eosinophils 1.3 % (0.0-10.0); %Lymphocytes 14.1 % (21.0-51.0); %Neutrophils 70.8 % (42.0-75.0); Mean Corpuscular HGB CONC 31.5 g/dL (32.0-36.0); Mean Corpuscular Hemoglobin 30.7 pg (27.0-31.0); Mean Corpuscular Volume 97.6 fL (78.0-98.0); Mean Platelet Volume 9.9 fL (7.4-10.4); Platelet Count 97 thou/uL (130-400); RBC Distribution Width 17.5 % (11.5-14.5); Red Blood Cell (RBC) Count 4.55 mill/uL (4.20-5.40); White Blood Cell (WBC) Count 14.9 thou/uL (4.8-10.8)
[2018-06-30 09:40] LABS: INR-International Normal Ratio 1.3; Prothrombin Time 16.6 SEC (12.0-14.7)
[2018-06-30 09:41] LABS: PTT 41.3 SEC (22.9-36.1)
--- NOTE | 2018-06-30 12:53 | ULT ---
Ultrasound-guided paracentesis: HISTORY: Symptomatic ascites FINDINGS: Informed consent obtained prior to the procedure. Preprocedural imaging demonstrated signif icant ascites throughout the abdomen and pelvis. Right lower quadrant prepped and draped in normal sterile fashion and anesthetized with 1% buffered l idocaine. With direct sonographic guidance, 5 Portuguese Yueh catheter is advanced into the ascites and removal of the stylet yielded yellow fluid. 2.35 L were removed. The patient tolerated the procedure well. No postprocedural complications. IMPRESSION: Successful ultrasound-guided paracentesis yielding 2.35 L of yellow ascites.
[2018-06-30 14:52] VITALS: BP 94/45; TEMP 96
[2018-06-30 14:58] VITALS: BMI 42.1
[2018-06-30] MEDS ORDERED: Albumin 25% 200 ML ONE (15:05)
== END 2018-06-30 13:00 | disposition home or self-care (01) ==
LOC: ULT 09:20
PROVIDERS: ATTEND Internal Medicine Hematology & Oncology
PROC: 0W9G3ZZ Drainage of Peritoneal Cavity, Percutaneous Approach (ICD-10-PCS; principal; 2018-06-30)
DX: R18.8 Other ascites (principal); C22.1 Intrahepatic bile duct carcinoma; I10 Essential (primary) hypertension; F17.200 Nicotine dependence, unspecified, uncomplicated
CPT/HCPCS: 36415; 49083; 85025; 85610; 85730; P9047

== ENCOUNTER 2018-07-08 11:55 | Day surgery (SDC) | payer OTHER ==
[2018-07-08] MEDS ORDERED: Prevnar 13-Val Conj/PF 0.5 ML SYRINGE IM ONE (12:00)
[2018-07-08 14:57] VITALS: BP 91/55; TEMP 97.9; BMI 42.5
--- NOTE | 2018-07-11 15:51 | ULT ---
ULTRASOUND GUIDED PARACENTESIS: DATE: 07/08/2018. HISTORY: Bile duct cancer, symptomatic ascites. FINDINGS: Informed consent obtained prior to the procedure. Preprocedure imaging demonstrates significant ascites within the abdomen/pelvis. The right lower quadrant is prepped and draped in normal sterile fashion and the skin overlying the r ight lower quadrant is anesthetized with 1% buffered lidocaine. With direct sonographic guidance, a 5 Mexican Job2Dayeh catheter is advanced into the free fluid in the rig ht lower quadrant and removal of the stylette yields yellow fluid. 3.5 liters were removed. The pat ient tolerated the procedure well. IMPRESSION: Successful ultrasound-guided paracentesis yielding 3.5 liters of yellow fluid. POS: [facility]
== END 2018-07-08 14:20 | disposition home or self-care (01) ==
LOC: ULT 11:55
PROVIDERS: ATTEND Internal Medicine Hematology & Oncology
PROC: 0W9G3ZZ Drainage of Peritoneal Cavity, Percutaneous Approach (ICD-10-PCS; principal; 2018-07-08)
DX: C24.0 Malignant neoplasm of extrahepatic bile duct (principal); R18.0 Malignant ascites; C78.00 Secondary malignant neoplasm of unspecified lung; F17.200 Nicotine dependence, unspecified, uncomplicated; I10 Essential (primary) hypertension; Z79.899 Other long term (current) drug therapy; Z88.8 Allergy status to other drugs, medicaments and biological substances
CPT/HCPCS: 49083

== ENCOUNTER 2018-07-16 10:05 | Emergency (ER) | payer OTHER ==
[2018-07-16 10:56] LABS: Hemoglobin 12.9 g/dL (12.0-16.0); Mean Corpuscular HGB CONC 32.4 g/dL (32.0-36.0); Mean Corpuscular Hemoglobin 31.5 pg (27.0-31.0); Mean Corpuscular Volume 97.3 fL (78.0-98.0); Mean Platelet Volume 9.5 fL (7.4-10.4); Platelet Count 119 thou/uL (130-400); White Blood Cell (WBC) Count 15.9 thou/uL (4.8-10.8)
[2018-07-16 11:16] LABS: ALT (SGPT) 29 U/L (8-55); AST (SGOT) 98 U/L (5-34); Albumin 2.6 g/dL (3.5-5.0); Alkaline Phosphatase 445 U/L (40-150); Anion Gap 16 mmol/L (10-20); BUN (Urea Nitrogen) 35 mg/dL (7.0-18.7); Bilirubin, Total 4.8 mg/dL (0.2-1.2); Calc. Creatinine Clearance 0 mL/min (70-130); Calcium 7.4 mg/dL (7.8-10.44); Carbon Dioxide 19 mmol/L (22-29); Chloride 98 mmol/L (98-107); Estimated GFR-MDRD 48; Globulin 5.2 g/dL (2.4-3.5); Glucose 78 mg/dL (70-105); Lipase 99 U/L (8-78); Potassium 3.6 mmol/L (3.5-5.1); Protein, Total 7.8 g/dL (6.0-8.3)
[2018-07-16 11:22] LABS: #Basophils 0.1 thou/uL (0.0-0.2); #Eosinphils 0.1 thou/uL (0.0-0.7); #Lymphocytes 2.4 thou/uL (1.20-3.40); #Monocytes 1.9 thou/uL (0.11-0.59); #Neutrophils 11.4 thou/uL (1.40-6.50); %Basophils 0.7 % (0.0-1.0); %Eosinophils 0.4 % (0.0-10.0); %Neutrophils 71.9 % (42.0-75.0); Band 2 % (5-11); Large Platelets SLIGHT; Lymphocytes 12 % (21-51); MDiff Complete? YES; Monocytes 12 % (0-10); Neutrophil 73 % (42-75); Platelet Morphology Comment Appears Decreased; Polychromasia SLIGHT = 2-3 cells (100X) (0-2/hpf); Vacuoles SLIGHT
[2018-07-16 11:25] LABS: Sodium 129 mmol/L (136-145)
[2018-07-16 13:29] LABS: BF Color Yellow; Body Fluid Source Peritoneal Fluid; Clarity Clear (Clear); Tube # 2
[2018-07-16 13:31] LABS: BF RBC Count - Manual 121 /cumm; BF WBC/Nonhematics Ct. - Manua 61 /cumm
[2018-07-16 13:54] LABS: BF Segmented Neutrophils 23 %; Cell Count Non Hematic 56 %; Lymphocytes 21 %
== END 2018-07-16 14:08 | disposition home or self-care (01) ==
LOC: ERS 10:05
DX: G89.18 Other acute postprocedural pain (principal); R10.9 Unspecified abdominal pain; I10 Essential (primary) hypertension; Z87.891 Personal history of nicotine dependence; Z79.899 Other long term (current) drug therapy
CPT/HCPCS: 36415; 49082; 80053; 83690; 85025; 85060; 89051

== ENCOUNTER 2018-07-19 22:51 | Observation (INO) | payer OTHER ==
[2018-07-20 00:13] LABS: #Basophils 0.2 thou/uL (0.0-0.2); #Eosinphils 0.1 thou/uL (0.0-0.7); #Lymphocytes 1.3 thou/uL (1.20-3.40); #Monocytes 1.3 thou/uL (0.11-0.59); %Basophils 1.4 % (0.0-1.0); %Eosinophils 0.6 % (0.0-10.0); %Lymphocytes 11.1 % (21.0-51.0); %Monocytes 11.2 % (0.0-10.0); %Neutrophils 75.7 % (42.0-75.0); Hemoglobin 13.1 g/dL (12.0-16.0); Mean Corpuscular HGB CONC 31.6 g/dL (32.0-36.0); Mean Corpuscular Hemoglobin 31.1 pg (27.0-31.0); Mean Corpuscular Volume 98.3 fL (78.0-98.0); Mean Platelet Volume 10.1 fL (7.4-10.4); Platelet Count 96 thou/uL (130-400); RBC Distribution Width 18.2 % (11.5-14.5); Red Blood Cell (RBC) Count 4.22 mill/uL (4.20-5.40); White Blood Cell (WBC) Count 11.9 thou/uL (4.8-10.8)
[2018-07-20 00:41] LABS: ALT (SGPT) 27 U/L (8-55); AST (SGOT) 98 U/L (5-34); Albumin 2.3 g/dL (3.5-5.0); Alkaline Phosphatase 479 U/L (40-150); Anion Gap 16 mmol/L (10-20); BUN (Urea Nitrogen) 30 mg/dL (7.0-18.7); Bilirubin, Total 4.3 mg/dL (0.2-1.2); Calc. Creatinine Clearance 0 mL/min (70-130); Calcium 7.7 mg/dL (7.8-10.44); Carbon Dioxide 18 mmol/L (22-29); Chloride 100 mmol/L (98-107); Estimated GFR-MDRD 49; Globulin 5.1 g/dL (2.4-3.5); Glucose 121 mg/dL (70-105); Potassium 3.9 mmol/L (3.5-5.1); Protein, Total 7.4 g/dL (6.0-8.3); Sodium 130 mmol/L (136-145)
[2018-07-20 01:49] LABS: INR-International Normal Ratio 0.9; Prothrombin Time 12.5 SEC (12.0-14.7)
[2018-07-20 01:50] LABS: PTT 31.4 SEC (22.9-36.1)
[2018-07-20] MEDS ORDERED: Aspirin Chewable 81 MG TAB ONE (01:57)
[2018-07-20] MEDS ORDERED: Albumin 25% 25 GM/100 ML BOT IVPB SCH (02:30)
[2018-07-20 03:13] LABS: Troponin I Less than 0.010 ng/mL (< 0.028)
--- NOTE | 2018-07-20 04:09 | RAD ---
XR Chest 1 View Portable HISTORY: Shortness of breath history of liver cancer. COMPARISON: None. FINDINGS: Heart size within normal limits. There are bibasilar lung changes which have the appearance of atelectasis. There is elevation to the right hemidiaphragm. A left-sided Mediport catheter is in place. IMPRESSION: Bibasilar atelectasis.
[2018-07-20 05:03] LABS: Lactic Acid 2.6 mmol/L (0.5-2.2)
[2018-07-20 05:23] LABS: Troponin I Less than 0.010 ng/mL (< 0.028)
--- NOTE | 2018-07-20 07:49 | CT ---
CTA CHEST WITH CONTRAST WITH 3D VOLUME RENDERING: COMPARISON: 08/23/2017. INDICATION: Short of breath, weakness, new onset. FINDINGS: No large, central filling defect of the pulmonary arteries is identified. There is limited evaluatio n of the segmental and subsegmental pulmonary interstitial branches due to a generalized mild density of contrast bolus within these levels, which could potentially obscure small peripheral emboli. A m oderate left pleural effusion is present. There is interstitial prominence of each lung as well as s uperimposed scattered wedge-shaped and linear parenchymal densities that favor multifocal subsegmenta l atelectasis. No pneumothorax. The tracheobronchial air column is patent. Partially imaged vascul ar catheter is seen traversing the left subclavian region. Partially imaged abdominal ascites. Ther e is enlargement of the spleen and a nodular contour of the liver indicating cirrhosis with portal hy pertension. The thoracic aorta is of normal caliber. No acute osseous pathology. IMPRESSION: 1. No large, central embolus. 2. Moderate left pleural effusion. 3. Multifocal parenchymal densities of each lung which may be on the basis of subsegmental atelectas is. 4. Cirrhosis and portal hypertension, incompletely evaluated within the imaged upper abdomen. There is a prominent degree of ascites of the abdomen, partially visualized. POS: [facility]
[2018-07-20] MEDS ORDERED: HYDROcodone/Acetaminophen 10/325 mg Tablet PO PRN (08:07)
[2018-07-20] MEDS ORDERED: Acetaminophen 325 MG TAB PO PRN (08:07)
[2018-07-20] MEDS ORDERED: Ondansetron ODT 4 MG TAB PO PRN (08:07)
[2018-07-20] MEDS ORDERED: Zolpidem Tartrate 5 MG TAB PO PRN (08:07)
[2018-07-20 08:35] LABS: #Basophils 0.2 thou/uL (0.0-0.2); #Eosinphils 0.1 thou/uL (0.0-0.7); #Lymphocytes 1.7 thou/uL (1.20-3.40); #Monocytes 1.5 thou/uL (0.11-0.59); #Neutrophils 7.3 thou/uL (1.40-6.50); %Basophils 1.6 % (0.0-1.0); %Eosinophils 0.8 % (0.0-10.0); %Lymphocytes 15.4 % (21.0-51.0); %Monocytes 13.9 % (0.0-10.0); %Neutrophils 68.3 % (42.0-75.0); Hemoglobin 11.2 g/dL (12.0-16.0); Mean Corpuscular Hemoglobin 31.5 pg (27.0-31.0); Mean Corpuscular Volume 98.3 fL (78.0-98.0); Platelet Count 86 thou/uL (130-400); RBC Distribution Width 18.2 % (11.5-14.5); Red Blood Cell (RBC) Count 3.56 mill/uL (4.20-5.40); White Blood Cell (WBC) Count 10.7 thou/uL (4.8-10.8)
[2018-07-20] MEDS: Spironolactone 25 MG TAB PO SCH ×2 (08:39→17:36)
[2018-07-20 08:53] LABS: Anion Gap 13 mmol/L (10-20); BUN (Urea Nitrogen) 27 mg/dL (7.0-18.7); Calc. Creatinine Clearance 114 mL/min (70-130); Calcium 7.8 mg/dL (7.8-10.44); Carbon Dioxide 19 mmol/L (22-29); Chloride 101 mmol/L (98-107); Estimated GFR-MDRD 65; Glucose 85 mg/dL (70-105); Potassium 4.1 mmol/L (3.5-5.1); Sodium 129 mmol/L (136-145)
[2018-07-20] MEDS ORDERED: Enoxaparin Sodium 40 MG/0.4 ML SYRINGE SC SCH (09:00)
[2018-07-20] MEDS ORDERED: Famotidine 20 MG TAB PO SCH (09:00)
[2018-07-20] MEDS ORDERED: Furosemide 20 MG TAB PO SCH (09:00)
[2018-07-20] MEDS ORDERED: ISOVUE-370 76%-LOCM 1 ML ONE (10:40)
--- NOTE | 2018-07-20 10:59 | HP ---
PRIMARY CARE PHYSICIAN: Ivon Marcelino MD CHIEF COMPLAINT: Shortness of breath. HISTORY OF PRESENT ILLNESS: Ms. Thomas is a very pleasant 52-year-old female, who has a history of cholangiocarcinoma, which is metastatic. She also has a history of ascites as well. She is currently undergoing chemotherapy for the cholangiocarcinoma. She says that in the last few days, she began getting short of breath. She says she gets this way when her abdomen gets "full." She believes it is getting full again. She says she was recently here to have fluid removed on Wednesday and she says at that time they removed 7 L of fluid. This was just about 4 days ago. She says she started getting short of breath, feeling like the abdomen was pushing on "everything." She also noted some abdominal pain, but she says she gets that when the fluid builds up as well. She denies any nausea, no vomiting, no fever, no chills. She did feel a little dizzy and lightheaded when she stands. She also notes increasing lower extremity edema. She says she has been compliant with her diet as far as low-sodium and she has been compliant with her diuretic treatment, but despite this, she has the continued need for fluid removal. She came to the emergency room, where they evaluated and found that she had significant amount of ascites. A CT angiogram was done, which was negative for PE, and she was admitted to observation for further evaluation and treatment. REVIEW OF SYSTEMS: All systems were reviewed and are negative except for that mentioned in the history of present illness. PAST MEDICAL HISTORY: Significant for rheumatic fever, cholangiocarcinoma, and hypertension. PAST SURGICAL HISTORY: She has had a hysterectomy, cholecystectomy, and bilateral tubal ligation. ALLERGIES: NO KNOWN DRUG ALLERGIES. SOCIAL HISTORY: She is a nonsmoker and nondrinker. She is , has 3 children. FAMILY HISTORY: No history of any heritable diseases. CURRENT MEDICATIONS: Include; 1. Lasix 20 mg daily. 2. Spironolactone 50 mg twice a day. 3. [place] 10/325 twice a day as needed. PHYSICAL EXAMINATION: GENERAL: She is alert and oriented. She appears to be in some mild distress due to dyspnea. She is well developed and well nourished, very pleasant. VITAL SIGNS: Blood pressure was 97/64, heart rate 116, respiratory rate of 20, and temperature is 98.2. HEENT: Pupils are equal, round, and reactive. Extraocular muscles are intact. Sclerae are anicteric. Throat; no erythema, no exudates. NECK: No adenopathy. No bruits. LUNGS: Clear to auscultation. There are no wheezing, no rales, no rhonchi. CARDIOVASCULAR: She had a normal S1 and S2. I did not appreciate an S3 or S4. No murmurs or clicks. No rubs. ABDOMEN: Distended. It was nontender. There is no appreciable organomegaly. However, there is significant amount of positive shifting dullness. EXTREMITIES: She has 2 to 3+ pitting edema bilaterally. Up past the knees, there is mild erythema. No joint effusions. No crepitus. NEUROLOGIC: Her cranial nerves II through XII are intact. Muscle strength is 5/5 in both upper and lower extremities. SKIN AND INTEGUMENT: She did have some mild erythema on both calves, but there is no significant skin lesions or rash. LABORATORY DATA: On her lab results, the white blood cell count is 11.9, hemoglobin 13.1, hematocrit is 41.5, and platelet count is 96. INR 0.9. Sodium was 130, potassium 3.9, chloride is 100, CO2 is 18, BUN of 30, creatinine 1.17, glucose is 121, alkaline phosphatase is 479. IMAGING DATA: On her EKG, it is sinus rhythm, the rate is in the 90s and is low voltage and there was some T-wave inversions in V1 through V3, this is by my reading. Chest x-ray showed a normal to slightly enlarged heart, elevation of the right hemidiaphragm, but no infiltrates or exudates. This is also by my reading. ASSESSMENT AND PLAN: 1. This is a pleasant 52-year-old female, who presents with shortness of breath and abdominal distention in the setting of ascites. She says this is very similar to how she feels when she has fluid accumulation and likely that is what has occurred again. Therefore, for acute respiratory failure due to massive ascites, she will be placed in observation. A large volume paracentesis has already been performed and agree with IV albumin following the procedure and we will also recheck her chemistry panel. We will continue Lasix and Aldactone. 2. Abnormal EKG. What is concerning is the low voltage on the EKG. This could be related to pericardial effusion. We will get an echocardiogram to assess for this. Her troponins have all been negative and she has not had any chest pain, therefore I doubt any acute coronary syndrome. 3. Cholangiocarcinoma. Continue chemotherapy as per Oncology. 4. She will be placed on deep venous thrombosis and gastrointestinal prophylaxis. Job ID: [id number]
[2018-07-20 16:14] VITALS: BP 98/62; TEMP 98.1
--- NOTE | 2018-07-20 17:14 | PDOC.EVN ---
Event Note - Event Note Event Note: Patient's Echo was negative for systolic dysfunction or pericardial effusion. Ok to discharge home.
--- NOTE | 2018-07-21 01:29 | DIS ---
DATE OF ADMISSION: 07/20/2018 DATE OF DISCHARGE: 07/20/2018 PRIMARY CARE PHYSICIAN: Ivon Marcelino MD DISCHARGE DISPOSITION: Home. PRIMARY DISCHARGE DIAGNOSES: 1. Acute respiratory failure. 2. Cholangiocarcinoma. 3. Ascites. 4. Abnormal EKG. 5. Morbid obesity. 6. Hypertension. DISCHARGE MEDICATIONS: Include; 1. Lasix 20 mg daily. 2. Aldactone 50 mg twice daily. 3. Ambien 10 mg at bedtime as needed. 4. [place] 10/325 twice a day as needed for pain. PROCEDURES DONE: During the admission; the patient had a large volume paracentesis. The patient also had a CTA of the chest, which was negative for pulmonary embolism. There is evidence of a moderate left pleural effusion. The patient also had an echocardiogram in which the ejection fraction was estimated at 55% to 60%. CODE STATUS: Full code. ALLERGIES: TO CISPLATIN. HOSPITAL COURSE: Ms. Thomas is a pleasant 52-year-old female who presented to the emergency room complaining of shortness of breath. This was likely due to recurrence of ascites. However, given her recent paracentesis, other causes of dyspnea were ruled out. She had a CT angiogram of the chest to rule out PE, this was negative. Also, an echocardiogram was done to rule out pericardial effusion as well as severe systolic dysfunction, the echo was negative for both. Her ejection fraction was 55% to 60%. and there was no evidence of any pericardial effusion. The patient was feeling improved and was subsequently discharged home to have close outpatient followup. Job ID: [id number]
--- NOTE | 2018-07-23 19:49 | EKG ---
Test Reason : Blood Pressure : / mmHG Vent. Rate : 106 BPM Atrial Rate : 106 BPM P-R Int : 164 ms QRS Dur : 084 ms QT Int : 346 ms P-R-T Axes : 035 081 070 degrees QTc Int : 459 ms Sinus tachycardia Low voltage QRS Possible Anterolateral infarct , age undetermined Abnormal ECG Confirmed by DIDI SHORE DO ([id number]), online content editor SATURNINO YORK ([id number]) on 07/23/2018 7:49:23 PM Referred By: Confirmed By:DIDI SHORE DO
== END 2018-07-20 17:47 | disposition home or self-care (01) ==
LOC: ERS 22:51 → 2SW 07-20 02:48
PROVIDERS: ADMIT Hospitalist; ATTEND Hospitalist
DX: R18.8 Other ascites (principal); J96.00 Acute respiratory failure, unspecified whether with hypoxia or hypercapnia; C22.1 Intrahepatic bile duct carcinoma; C79.9 Secondary malignant neoplasm of unspecified site; K74.60 Unspecified cirrhosis of liver; K76.6 Portal hypertension; J98.11 Atelectasis; J90 Pleural effusion, not elsewhere classified; E66.01 Morbid (severe) obesity due to excess calories; R94.31 Abnormal electrocardiogram [ECG] [EKG]; Z68.41 Body mass index [BMI] 40.0-44.9, adult; Z88.8 Allergy status to other drugs, medicaments and biological substances; Z87.891 Personal history of nicotine dependence; Z79.899 Other long term (current) drug therapy
CPT/HCPCS: 36415; 49082; 71045; 71275; 80048; 80053; 82140; 83605; 84484; 85025; 85610; 85730; 87040; 93005; 93306; 96365; 96366; 96372; G0378; J1650; P9047; Q9966

== ENCOUNTER 2018-07-24 12:05 | Emergency (ER) | payer OTHER | END 2018-07-24 14:28 | disposition home or self-care (01) | LOC: ERS 12:05 | DX: R18.8 Other ascites (principal); I10 Essential (primary) hypertension; Z87.891 Personal history of nicotine dependence | CPT/HCPCS: 49083 ==

== ENCOUNTER 2018-07-27 08:13 | Emergency (ER) | payer OTHER ==
[2018-07-27 09:30] LABS: Hemoglobin 12.3 g/dL (12.0-16.0); Mean Corpuscular HGB CONC 33.1 g/dL (32.0-36.0); Mean Corpuscular Hemoglobin 32.3 pg (27.0-31.0); Mean Corpuscular Volume 97.7 fL (78.0-98.0); Mean Platelet Volume 10.7 fL (7.4-10.4); Platelet Count 71 thou/uL (130-400); RBC Distribution Width 18.7 % (11.5-14.5)
[2018-07-27 09:31] LABS: #Basophils 0.1 thou/uL (0.0-0.2); #Lymphocytes 1.5 thou/uL (1.20-3.40); #Monocytes 1.7 thou/uL (0.11-0.59); #Neutrophils 11.6 thou/uL (1.40-6.50); %Basophils 0.9 % (0.0-1.0); %Eosinophils 0.3 % (0.0-10.0); %Lymphocytes 9.9 % (21.0-51.0); %Monocytes 11.5 % (0.0-10.0); %Neutrophils 77.4 % (42.0-75.0)
[2018-07-27 09:47] LABS: ALT (SGPT) 21 U/L (8-55); AST (SGOT) 82 U/L (5-34); Albumin 2.4 g/dL (3.5-5.0); Alkaline Phosphatase 419 U/L (40-150); Anion Gap 15 mmol/L (10-20); BUN (Urea Nitrogen) 29 mg/dL (7.0-18.7); Bilirubin, Total 6.4 mg/dL (0.2-1.2); Calc. Creatinine Clearance 0 mL/min (70-130); Calcium 8.6 mg/dL (7.8-10.44); Carbon Dioxide 20 mmol/L (22-29); Chloride 98 mmol/L (98-107); Estimated GFR-MDRD 39; Globulin 4.5 g/dL (2.4-3.5); Glucose 88 mg/dL (70-105); Lipase 83 U/L (8-78); Potassium 4.5 mmol/L (3.5-5.1); Protein, Total 6.9 g/dL (6.0-8.3); Sodium 128 mmol/L (136-145)
[2018-07-27 09:50] LABS: Band 14 % (5-11); Lymphocytes 15 % (21-51); MDiff Complete? YES; Monocytes 9 % (0-10); Neutrophil 61 % (42-75); Platelet Morphology Comment Appears Decreased; Rouleaux Formation SLIGHT = 1-5 cells (100X) (None Seen)
--- NOTE | 2018-07-27 14:27 | ULT ---
LIMITED 4 QUADRANT ABDOMINAL ULTRASOUND: Date: 07/27/18 INDICATION: Ascites. FINDINGS/IMPRESSION: A 4 quadrant ultrasound was performed to assess ascites. There is low volume ascites identified. Ultr asound-guided paracentesis in the radiology department is cancelled at this time. POS: NICOLLE
== END 2018-07-27 12:25 | disposition home or self-care (01) ==
LOC: ERS 08:13
DX: R18.8 Other ascites (principal); R10.9 Unspecified abdominal pain; I10 Essential (primary) hypertension; Z87.891 Personal history of nicotine dependence; Z79.899 Other long term (current) drug therapy
CPT/HCPCS: 36415; 76705; 80053; 83605; 83690; 83880; 85025

== ENCOUNTER 2018-07-27 12:59 | Day surgery (SDC) | payer OTHER ==
[2018-07-27 08:33] VITALS: BMI 42.1
[~2018-07-27 12:59] MED LIST changes: -ISOVUE-370 76%-LOCM 1 ML ONE; +Prevnar 13-Val Conj/PF 0.5 ML SYRINGE IM ONE
== END 2018-07-27 13:20 | disposition home or self-care (01) ==
LOC: ULT 12:59
PROVIDERS: ATTEND Internal Medicine Hematology & Oncology
PROC: 0W9G3ZZ Drainage of Peritoneal Cavity, Percutaneous Approach (ICD-10-PCS; principal; 2018-07-27)
PROC: BW40ZZZ Ultrasonography of Abdomen (ICD-10-PCS; principal; 2018-07-27)
DX: R18.8 Other ascites (principal); K76.0 Fatty (change of) liver, not elsewhere classified; I10 Essential (primary) hypertension; E78.5 Hyperlipidemia, unspecified; F41.9 Anxiety disorder, unspecified; K21.9 Gastro-esophageal reflux disease without esophagitis; I00 Rheumatic fever without heart involvement; C22.1 Intrahepatic bile duct carcinoma; E66.9 Obesity, unspecified; Z68.41 Body mass index [BMI] 40.0-44.9, adult; Z87.891 Personal history of nicotine dependence; Z88.8 Allergy status to other drugs, medicaments and biological substances

== ENCOUNTER 2018-07-29 15:08 | Emergency (ER) | payer OTHER ==
[2018-07-29] MEDS ORDERED: Ondansetron ODT 4 MG TAB ONE (15:13)
[2018-07-29 16:28] LABS: #Basophils 0.1 thou/uL (0.0-0.2); #Lymphocytes 1.5 thou/uL (1.20-3.40); #Monocytes 1.1 thou/uL (0.11-0.59); #Neutrophils 13.3 thou/uL (1.40-6.50); %Basophils 0.4 % (0.0-1.0); %Eosinophils 0.1 % (0.0-10.0); %Lymphocytes 9.1 % (21.0-51.0); %Monocytes 7.1 % (0.0-10.0); %Neutrophils 83.3 % (42.0-75.0); Hemoglobin 12.6 g/dL (12.0-16.0); Mean Corpuscular HGB CONC 33.6 g/dL (32.0-36.0); Mean Corpuscular Hemoglobin 33.2 pg (27.0-31.0); Mean Corpuscular Volume 98.7 fL (78.0-98.0); Platelet Count 70 thou/uL (130-400); RBC Distribution Width 18.9 % (11.5-14.5); Red Blood Cell (RBC) Count 3.78 mill/uL (4.20-5.40)
[2018-07-29 16:47] LABS: ALT (SGPT) 26 U/L (8-55); AST (SGOT) 90 U/L (5-34); Albumin 2.3 g/dL (3.5-5.0); Alkaline Phosphatase 379 U/L (40-150); Anion Gap 17 mmol/L (10-20); BUN (Urea Nitrogen) 36 mg/dL (7.0-18.7); Bilirubin, Total 9.5 mg/dL (0.2-1.2); Calc. Creatinine Clearance 0 mL/min (70-130); Calcium 8.4 mg/dL (7.8-10.44); Carbon Dioxide 17 mmol/L (22-29); Chloride 98 mmol/L (98-107); Estimated GFR-MDRD 30; Globulin 4.4 g/dL (2.4-3.5); Glucose 76 mg/dL (70-105); Potassium 4.9 mmol/L (3.5-5.1); Protein, Total 6.7 g/dL (6.0-8.3); Sodium 127 mmol/L (136-145)
[2018-07-29 16:58] LABS: MDiff Complete? YES; Macrocytosis SLIGHT = 6-15 cells (100X) (0-5/hpf); Ovalocytes SLIGHT = 2-5 cells (100X) (0-1/hpf); Platelet Morphology Comment Appears Decreased; Polychromasia SLIGHT = 2-3 cells (100X) (0-2/hpf)
--- NOTE | 2018-07-30 14:37 | EKG ---
Test Reason : Blood Pressure : / mmHG Vent. Rate : 089 BPM Atrial Rate : 089 BPM P-R Int : 178 ms QRS Dur : 094 ms QT Int : 386 ms P-R-T Axes : 034 059 061 degrees QTc Int : 469 ms Normal sinus rhythm Low voltage QRS Possible Anterolateral infarct , age undetermined Abnormal ECG Confirmed by EDITA DELANEY D.O. ([id number]), food editor DANNIELLE LOMBARDO ([id number]) on 07/30/2018 2:37:21 PM Referred By: Confirmed By:EDITA DELANEY D.O.
== END 2018-07-29 17:07 | disposition home or self-care (01) ==
LOC: ERS 15:08
DX: R11.2 Nausea with vomiting, unspecified (principal); I10 Essential (primary) hypertension; Z79.891 Long term (current) use of opiate analgesic; Z79.899 Other long term (current) drug therapy; Z87.891 Personal history of nicotine dependence
CPT/HCPCS: 36415; 80053; 83605; 85025; 93005; Q0162